=== PATIENT | female | born 1965 | race American Indian/Alaskan Native ===

== ENCOUNTER 2019-04-02 15:10 | Outpatient (CLI) | payer BC, OTHER | END 2019-04-02 15:11 | disposition home or self-care (01) | LOC: LABHHL 15:10 | PROVIDERS: ATTEND Surgery | DX: C50.911 Malignant neoplasm of unspecified site of right female breast (principal); D36.0 Benign neoplasm of lymph nodes | CPT/HCPCS: 88305; 88341; 88342; 88368 ==

== ENCOUNTER 2019-05-04 12:43 | Day surgery (SDC) | payer BC ==
[~2019-05-04 12:43] MED LIST: ANCEF/STERILE WATER 2 GM/20 ML 2 GM/20 ML SYRINGE IV NR; ANCEF/STERILE WATER 2 GM/20 ML IV NR; LACTATED RINGERS 1,000 ML IV SCH; NEURONTIN PO NR; TYLENOL PO NR; TYLENOL PO ONE
[2019-05-04] MEDS ORDERED: NACL BACTERIOSTATIC INFILTRATI ONE (13:14)
[2019-05-04] MEDS ORDERED: VERSED IV ONE (13:55)
--- NOTE | 2019-05-04 14:09 | Anesthesia Day of Surgery ---
Anesthesia Day of Surgery - Day of Surgery Patient Examined: Yes Patient H&P Reviewed: Yes Patient is NPO: Yes
[2019-05-04] MEDS ORDERED: XYLOCAINE 1% 20 mL ONE (14:12)
[2019-05-04] MEDS ORDERED: MARCAINE 0.5% INFILTRATI ONE ×2 (14:12→14:58)
--- NOTE | 2019-05-04 14:12 | Anesthesia Consultation ---
Anesthesia Consult and Med Hx Date of service: 05/04/19 - Airway Anesthetic Teeth Evaluation: Good ROM Head & Neck: Adequate Mental/Hyoid Distance: Adequate Mallampati Class: Class III Intubation Access Assessment: Probably Good - Pre-Operative Health Status ASA Pre-Surgery Classification: ASA2 Proposed Anesthetic Plan: General, MAC - Pulmonary Hx Smoking: Yes (PRESCREEN HIGH RISK) Hx Sleep Apnea: No - Cardiovascular System Hx Hypertension: Yes Hx Heart Attack/AMI: No - Central Nervous System Hx Psychiatric Problems: No - Hematic Hx Anemia: No - Other Systems Hx Alcohol Use: Yes (OCC. WINE OR LIQUOR) Hx Cancer: Yes
[2019-05-04] MEDS ORDERED: DIPRIVAN 10 MG/ML IV ONE ×2 (14:37→15:06)
[2019-05-04] MEDS ORDERED: VERSED ONE (14:38)
[2019-05-04] MEDS ORDERED: SUBLIMAZE ONE (14:40)
[2019-05-04] MEDS ORDERED: HEPARIN 10,000 UNITS/10 ML ONE (14:55)
[2019-05-04] MEDS ORDERED: NACL 0.9% 250ML 250 ML ONE (14:56)
[2019-05-04] MEDS ORDERED: XYLOCAINE 1% 20 mL INFILTRATI ONE (14:58)
[2019-05-04] MEDS ORDERED: NACL P/F VIAL (10 ML) 10 ML ONE (15:02)
--- NOTE | 2019-05-04 15:39 | Short Stay Summary ---
Short Stay Documentation Date of service: 05/04/19 - History H&P: obtained from office - Allergies and Medications Current Medications: Allergies No Known Allergies Allergy (Unverified 05/03/19 09:42) Home Medications Medication Instructions Recorded Confirmed Last Taken Type Ibuprofen [Motrin 800 MG tab] 800 mg PO PRN 05/03/19 05/03/19 04/28/19 History Valsartan [Diovan] 160 mg PO DAILY 05/03/19 05/04/19 05/03/19 History Active Medications Acetaminophen (Tylenol) 1,000 mg PO PREOP NR Stop: 05/04/19 16:00 Last Admin: 05/04/19 13:25 Dose: 1,000 mg Documented by: Cefazolin Sodium (Ancef/Sterile Water 2 Gm/20 Ml) 2 gm IV PREOP NR Stop: 05/04/19 16:00 Celecoxib (Celebrex) 200 mg PO PREOP NR Stop: 05/04/19 16:00 Last Admin: 05/04/19 13:25 Dose: 200 mg Documented by: Gabapentin (Neurontin) 300 mg PO PREOP NR Stop: 05/04/19 16:00 Last Admin: 05/04/19 13:25 Dose: 300 mg Documented by: Lactated Ringer's (Lactated Ringers) 1,000 mls @ 75 mls/hr IV DIRECT RANDALL Last Admin: 05/04/19 13:35 Dose: 75 mls/hr Documented by: - Physical exam General appearance: no acute distress Integumentary: no rash, no growths, no abnormal pigmentation HEENT: Atraumatic Lungs: Normal air movement Neurological: Normal speech - Brief post op/procedure progress note Date of procedure: 05/04/19 (dictation:[id number]) Pre-op diagnosis: right breast cancer Post-op diagnosis: same Procedure: Port placement under ultrasound guidance IVF 700cc EBL<10cc Anesthesia: MAC Findings: normal anatomy Surgeon: HANG PATEL Estimated blood loss: minimal Pathology: none Condition: stable - Hospital course Hospital course: uneventful - Disposition Condition at discharge: Stable Disposition: DC-01 TO HOME OR SELFCARE Short Stay Discharge Plan Diet: regular Wound: open to air, keep clean and dry Special Instructions: no heavy lifting Additional Instructions: Post Operative Instructions No driving until cleared by surgeon. May shower tomorrow. Pat dry the wound or wounds. After surgery, start with a light diet. Consider having a liquid diet first. If you do well, you can advance to a regular diet as you feel comfortable. Apply an ice pack to the wound or wounds for 10-20 minutes at a time. Do this at least 4-5 times a day. You can do it more if he would like. Alternate the use of ibuprofen and Tylenol for the first 2 days. I want you to take these on a scheduled basis. Take 600 mg of ibuprofen every 6 hours. Take 500 mg of Tylenol every 6 hours. You should alternate these 2 medicines. In other words, beginning with the ibuprofen. After 3 hours, take the Tylenol. Keep alternating the 2 drugs every 3 hours. Do this on a scheduled basis for the first 2 days. After that, you can take them as needed. It is very important that you use the prescription pain medicine only for very severe pain. Do not take the prescription medicine before you try using the ibuprofen and Tylenol. We will call you in a couple of days to see how youre doing. If you have any questions or concerns, always feel free to call the clinic at any time. WOUND:OPEN TO AIR. DO NOT RUB OR SCRUB INCISION SITE. NO POOLS, LAKES , NO BATH. MAY SHOWER. DO NOT SUBMERGE TO WATER. Follow up with: PRIMARY CARE, [Primary Care Provider] - 7 Days Prescriptions: HYDROcodone/APAP 5-325 [Eclectic 5/325] 1 each PO Q6HR PRN #10 tablet PRN Reason: Pain , Severe (7-10)
[2019-05-04] MEDS ORDERED: NORMODYNE IV ONE (15:55)
--- NOTE | 2019-05-04 16:31 | Fluoroscopy Report ---
FLUOROSCOPY CENTRAL VENOUS DEVICE PLACEMENT HISTORY: Breast cancer, Dqpiwg-m-Vait insertion. FINDINGS: Fluoroscopy was provided by radiology during Embzaq-a-Ndtp insertion. 0.6 minutes of fluoroscopy time was utilized. 2 AP images of the chest are presented demonstrating a left IJ Momwpq-n-Shbh insertion terminating in the right atrium. The lungs are clear. No pneumothorax. Heart and mediastinal structu res are within normal limits. IMPRESSION: Left Dsolyf-i-Qsth placement. No pneumothorax. Signer Name: Sb Genao Jr, MD Signed: 05/04/2019 4:26 PM Workstation Name: [id number]
[2019-05-04 16:56] VITALS: BP 168/88
--- NOTE | 2019-05-04 20:20 | Post Anesthesia Evaluation ---
- Post Anesthesia Evaluation Patient Participated: Yes Airway Patent: Yes Stable Respiratory Function: Yes Nausea/Vomiting: No Temp > 96.8F: Yes Pain Manageable: Yes Adequeate Hydration: Yes Anesthesia Complications: No Block Receding Appropriately: Not Applicable Patient on Ventilator: No
--- NOTE | 2019-05-04 23:04 | Operative Report ---
PREOPERATIVE DIAGNOSIS: Right breast cancer. POSTOPERATIVE DIAGNOSIS: Right breast cancer. PROCEDURE: 1. Placement of tunneled intravascular central venous catheter with subcutaneous port. 2. Ultrasound guidance for vascular access. ATTENDING PHYSICIAN: Eliazar Borjas MD ANESTHESIA: Local MAC. ESTIMATED BLOOD LOSS: Less than 10 mL. FLUIDS: 700 mL. FINDINGS: Normal vascular anatomy. IMPLANTS: Smart Port. DRAINS: None. COMPLICATIONS: None. DISPOSITION: Stable transport to Recovery. INDICATIONS: This is a 53-year-old female who was recently diagnosed with breast cancer. The patient is assessed to be in need for preoperative chemotherapy. Procedure, risks, benefits were explained. Risks included but were not limited to infection, bleeding, pain, injury to surrounding structures, possible need for further procedures in the future. The patient understood and consented. OPERATIVE NOTE: The patient was brought to the operating room and placed on the table in supine position. After adequate sedation was established, the patient was prepped and draped in the usual sterile fashion. Before that the ultrasound examination had been done of the left subclavian and left internal jugular veins. The left subclavian vein was not well visualized. The left internal jugular vein was easily visualized. It was patent throughout. There were no clots noted. No stenosis was noted. It was soft and easily compressible. This appeared to be our best target. Sterile prep and drape was performed. The patient was placed in Trendelenburg position. A roll was placed underneath the shoulders. Time-out was called. We began by anesthetizing the planned access site with 1% lidocaine and 0.5% Marcaine. This was done under ultrasound guidance. I anesthetized the entire area up to the area of the vein. We also took care to avoid the external jugular vein that was both visible external exam and ultrasound. Thereafter, a small incision was made under ultrasound guidance, I advanced the introducer needle into the vein. I accessed it on the first attempt. Guidewire easily passed. We then secured this to the drape. We checked the position with fluoroscopy, it was in good position. I then turned my attention to the subcutaneous pocket for the port. Additional local was injected. Skin was incised. Subcutaneous pocket was created both with electrocautery and blunt dissection. It appears the patient prior was taking a fair amount of ibuprofen as she had a lot of oozing when I spoke with at the end of the case he confirmed that she had been taking a fair amount. Hemostasis was achieved with electrocautery. Wound was packed. I then anesthetized the planned tunneling site and then passed the tunneler up to the neck. This was done with minimal difficulty. Catheter was pulled out. We clamped the distal aspect of the catheter and then we proceeded to pass the dilator and sheath over the guidewire periodically checking to make sure the guidewire was easily mobile and once the dilator sheath completely in, I removed the dilator and the wire. We had good blood flow through the sheath. Catheter was passed to about 22 cm. This appeared to be a very good length for her. I then modified the distal aspect of it, taking care to clamp the catheter, so that area did not rushing. We secured the port. Port was in the pocket and then we placed securing a blue collar over the point where the catheter attached to the port. We tested the port. It aspirated and flushed very easily. We then locked it. After we had removed the sheath completely and then put the catheter in, we looked at the path with fluoroscopy. There were no twists or sharp bends. Everything looked really good. The tip of it appeared to be approximately 2-1/2 vertebral bodies below the david, which I thought was reasonable. There was no ectopy on exam: The patient was placed in reverse Trendelenburg position. Locking solution was administered. We made sure we had good hemostasis. I closed the deep tissue at the port site with interrupted 3-0 Vicryl sutures. Skin was closed with a running 4-0 Monocryl subcuticular stitch. Skin was cleaned and dried. Dermabond was placed on both sides. The patient tolerated procedure well. There were no complications. All counts were correct. I spoke with at the end of the case because of the oozing and recommended frequent use of the ice packs and mild pressure. Official read of the post-procedure chest x-ray shows no evidence of any complication. No evidence of pneumothorax. The tip of the catheter terminated in the right atrium. JOB# [id number] ZEYNEP/GRABIEL
== END 2019-05-04 12:44 | disposition home or self-care (01) ==
LOC: OR 12:43
PROVIDERS: ATTEND Surgery
DX: C50.911 Malignant neoplasm of unspecified site of right female breast (principal); I10 Essential (primary) hypertension; Z72.89 Other problems related to lifestyle; Z85.89 Personal history of malignant neoplasm of other organs and systems; Z87.891 Personal history of nicotine dependence; Z79.899 Other long term (current) drug therapy; Z98.890 Other specified postprocedural states
CPT/HCPCS: 36561; 77001; 81025; C1788; J0690; J1644; J2250; J2704; J3010; J7050; J7120

== ENCOUNTER 2019-05-22 08:57 | Outpatient (CLI) | payer BC ==
--- NOTE | 2019-05-24 11:06 | Magnetic Resonance Report ---
BILATERAL BREAST MR WITHOUT AND WITH GADOLINIUM INDICATION: Newly diagnosed right breast cancer. COMPARISONS: 04/02/2019 [facility] TECHNIQUE: Axial 1.0 mm T1 without, axial high-resolution 2.0 mm T2 and axial 1.0 mm dynamic vibrant high-resolution postcontrast T1 fat saturation sequences on a 1.5 Aydee magnet. The examination was p erformed with an 8-channel dedicated [place] breast coil. Post-processing with CAD and subtraction was performed on an Spot[employer] workstation. 19.0 cc of MultiHance was injected without incident for the c ontrast portion of the exam. Consent was obtained prior to the administration of the contrast. FINDINGS: RIGHT BREAST: Mild background parenchymal enhancement. An oval irregular enhancing mass in the upper inner quadrant measures 4.5 x 3.5 x 2.3 cm. There is at least 3 cm of mass extending to the skin. The skin is abnormally thickened and demonstrates abnormal enhancement in the area of the mass. The ashwini phery of the mass demonstrates heterogeneous enhancement with 100% type I persistent waveform and 108 % peak enhancement. No other mass or suspicious enhancement. A suspicious 2 cm right axillary lymph n ode contains a biopsy clip and has a cortical thickness of 8 mm. No other suspicious lymph nodes. LEFT BREAST: Minimal background parenchymal enhancement. No mass or suspicious enhancement. No suspic ious lymph nodes. An Fjdacs-u-Ipoq is identified in the upper inner quadrant. IMPRESSION: 1. A 4.5 cm known right breast cancer with skin involvement and central necrosis. 2. No other lesion of either breast. 3. A single suspicious right axillary lymph node which has been biopsied. No other suspicious lymph n odes. BI-RADS Category 6--Known Cancer Signer Name: Konrad Montenegro MD Signed: 05/24/2019 11:02 AM Workstation Name: [id number]
== END 2019-05-22 08:58 | disposition home or self-care (01) ==
LOC: SPVIMAG 08:57
PROVIDERS: ATTEND Surgery
DX: C50.911 Malignant neoplasm of unspecified site of right female breast (principal); I10 Essential (primary) hypertension
CPT/HCPCS: A9577; C8908; 77049

== ENCOUNTER 2019-11-28 06:13 | Observation (INO) | payer BC, OTHER ==
[~2019-11-28 06:13] MED LIST changes: -ANCEF/STERILE WATER 2 GM/20 ML 2 GM/20 ML SYRINGE IV NR; -ANCEF/STERILE WATER 2 GM/20 ML IV NR; +CELECOXIB 200 MG CAP PO NR; +GABAPENTIN 300 MG CAP PO NR; -LACTATED RINGERS 1,000 ML IV SCH; +MAGNESIUM OXIDE 400 MG TAB PO SCH; +MIDAZOLAM 2 MG/2 ML INJ IV NR; -NEURONTIN PO NR; +SCOPOLAMINE TRANSDERMAL PATCH 72 HR TD NR; -TYLENOL PO NR; -TYLENOL PO ONE; +fentaNYL 100 MCG/2 ML INJ IV PRN
[2019-11-28] MEDS ORDERED: LACTATED RINGERS 1,000 ML IV SCH ×2 (07:00→14:00)
[2019-11-28] MEDS ORDERED: ROCURONIUM 50 MG/5 ML INJ IV ONE ×2 (07:10→10:09)
[2019-11-28] MEDS ORDERED: fentaNYL 100 MCG/2 ML INJ ONE (07:10)
[2019-11-28] MEDS ORDERED: METHYLENE BLUE 50 MG/10 ML AMP ONE (07:10)
[2019-11-28] MEDS ORDERED: propofoL 200 MG/20 ML VIAL IV ONE (07:10)
[2019-11-28] MEDS ORDERED: SODIUM CHLORIDE P/F VIAL 10 ML 10 ML ONE (07:10)
[2019-11-28] MEDS ORDERED: MIDAZOLAM 2 MG/2 ML INJ ONE (07:10)
[2019-11-28] MEDS ORDERED: LIDOCAINE MPF (2%) 20 MG/1 ML VIAL 5 ML ONE (07:10)
[2019-11-28] MEDS ORDERED: ACETAMINOPHEN 500 MG TAB PO NR (07:17)
[2019-11-28] MEDS ORDERED: ceFAZolin/STERILE WATER 2 GM/20 ML SYRINGE IV NR (07:20)
--- NOTE | 2019-11-28 07:22 | Anesthesia Day of Surgery ---
Anesthesia Day of Surgery - Day of Surgery Patient Examined: Yes Patient H&P Reviewed: Yes Patient is NPO: Yes
--- NOTE | 2019-11-28 07:23 | Anesthesia Consultation ---
Anesthesia Consult and Med Hx Date of service: 11/28/19 - Airway Anesthetic Teeth Evaluation: Chipped ROM Head & Neck: Adequate Mental/Hyoid Distance: Adequate Mallampati Class: Class II Intubation Access Assessment: Good - Pre-Operative Health Status ASA Pre-Surgery Classification: ASA2 Proposed Anesthetic Plan: General - Pulmonary Hx Smoking: Yes (SINCE AGE 20 SOCIALLY; QUIT 2005) Hx Sleep Apnea: No - Cardiovascular System Hx Hypertension: Yes (2017. States she can climb two flights of stairs) - Central Nervous System Hx Psychiatric Problems: No - Hematic Hx Anemia: No - Other Systems Hx Alcohol Use: Yes (OCCA. WINE) Hx Substance Use: Yes (MARIJUANA OCCA.) Hx Cancer: Yes
[2019-11-28] MEDS ORDERED: BUPIVACAINE-EPINEPHRINE/PF 0.5%-1:200,000 (30 ML) VIAL INFILTRATI ONE (07:25)
[2019-11-28] MEDS ORDERED: MIDAZOLAM 2 MG/2 ML INJ IV NR (07:40)
[2019-11-28] MEDS ORDERED: SODIUM CHLORIDE 0.9% P/F 10 ML VIAL INFILTRATI ONE (09:16)
[2019-11-28] MEDS ORDERED: METHYLENE BLUE 50 MG/10 ML AMP IV ONE (09:16)
[2019-11-28] MEDS ORDERED: ONDANSETRON 4 MG/2 ML INJ ONE (09:19)
[2019-11-28] MEDS ORDERED: dexAMETHasone 20 MG/5 ML VIAL ONE (09:19)
[2019-11-28] MEDS ORDERED: METOCLOPRAMIDE 10 MG/2 ML INJ ONE (09:19)
[2019-11-28] MEDS ORDERED: ceFAZolin 1 GM VIAL ONE ×2 (09:23→14:25)
[2019-11-28] MEDS ORDERED: SODIUM CHLORIDE P/F VIAL 10 ML 20 ML ONE (09:24)
[2019-11-28] MEDS ORDERED: GENTAMICIN 40 MG/ML VIAL 2 ML ONE (09:24)
[2019-11-28] MEDS ORDERED: BACITRACIN 50,000 UNIT VIAL ONE (09:24)
[2019-11-28] MEDS ORDERED: WATER FOR IRRIG STERILE 1,500 ML BOTTLE IR ONE (09:30)
[2019-11-28] MEDS ORDERED: SODIUM CHLORIDE 0.9% IRR 1,500 ML BOTTLE IR ONE ×2 (10:31→14:30)
[2019-11-28] MEDS ORDERED: ceFAZolin 1 GM VIAL IV ONE ×2 (10:33→14:30)
[2019-11-28] MEDS ORDERED: ceFAZolin 1 GM VIAL IR ONE ×2 (10:38→14:30)
[2019-11-28] MEDS ORDERED: BACITRACIN 50,000 UNIT VIAL IR ONE ×2 (10:39→14:30)
[2019-11-28] MEDS ORDERED: GENTAMICIN 40 MG/ML VIAL 2 ML IV ONE ×2 (10:40→14:30)
[2019-11-28] MEDS ORDERED: HYDROmorphone 1 MG/1 ML INJ ONE (11:15)
[2019-11-28] MEDS ORDERED: LACTATED RINGERS 1,000 ML ONE ×2 (11:26→16:45)
[2019-11-28] MEDS ORDERED: PHENYLEPHRINE/NS 1,000 MCG/10 ML SYRINGE (OR USE) IV ONE (11:31)
--- NOTE | 2019-11-28 13:12 | Operative Report ---
Operative Report Operative Report: Operative Report: Date of Service: October 24, 2019 Preoperative diagnosis: Right breast cancer of the upper inner quadrant Postoperative diagnosis: Same Procedure: Right total mastectomy with sentinel lymph node biopsy and left total mastectomy Surgeon: Raven Stephens M.D. Registered Nurse Maternal Child: Dr. Grimaldo Anesthesia: Gen. Findings: Right breast clip present within right total mastectomy; x3 sentinel lymph nodes identified and negative for malignancy on frozen section of patholo gy with first SLN with biopsy site changes Complications: None Drains: Per Plastic Surgery Estimated blood loss: 100-150 cc Disposition: Plastic surgery proceeded with bilateral tissue expanders Indications for operative procedure: This is a 54-year-old lady with stage II- III right breast cancer of the upper inner quadrant, IDCA grade 3 cT3N0/1M0 ER 10% positive. She completed neoadjuvant chemotherapy with a good response clinically and recommendations were to proceed with a right total mastectomy and patient wanted to proceed with a bilateral mastectomy with immediate bilateral tissue coupon collection clerk placement by plastic surgery. She understood the possibility of adjuvant radiation therapy following surgery. She wished to proceed with the above procedure. Procedure in detail: The patient was taken to the operating room and was placed supine. Gen. anesthesia was administered. The right nipple was injected with radioisotope and 1 cc of methylene blue. Bilateral chest and axillas were pr epped and draped in the normal sterile operative fashion. Timeout was performed. Vertical mastectomy incision markings were made given location of known right breast cancer at the 2:00 position 5-6 cm from the nipple. Attention was taken toward the left breast first. First began raising of the superior flap to the level of the clavicle superiorly and posteriorly to the pectoralis muscle; port was noted and unharmed. Followed by raising of the medial flap to the level of the sternum and posteriorly to the pectoralis muscle. Followed by raising of the lateral flap to the level of the latissimus dorsi muscle and taken down posteriorly. Followed by raising of the inferior flap to the level of the inframammary fold taken posterior to the pectoralis muscle. The mastectomy/breast was removed from the pectoralis muscle without incident. The specimen was appropriately marked and sent to pathology. Hemostasis was obtained. Attention was taken towards the right breast. A gamma probe was inserted into the axilla to identify the sentinel lymph node location with uptake noted. A skin incision was made with a 10 blade knife and dissection taken down to the subcutaneous tissues. First began raising of the superior flap to the level of the clavicle superiorly and posteriorly to the pectoralis muscle. Followed by raising of the medial flap to the level of the sternum and posteriorly to the p ectoralis muscle. Followed by raising of the lateral flap to the level of the latissimus dorsi muscle and taken down posteriorly. The gamma probe was inserted into the axilla, the axillary fascia was opened and 3 SLNS were identified that were dissected free and sent to pathology. All SLNs sent to pathology with findings negative for malignancy on frozen section and first SLN with biopsy site changes. Then proceeded with raising of the inferior flap to the level of the inframammary fold taken posterior to the pectoralis muscle. The mastectomy/breast was removed from the pectoralis muscle without incident. The specimen was appropriately marked and sent to radiology with findings of breast clip present and sent to pathology. Hemostasis was obtained. The chest wall cavity was irrigated. She tolerated surgery very well and plastic surgery then proceeded with immediate bilateral tissue coupon collection clerk placement.
[2019-11-28] MEDS ORDERED: diphenhydrAMINE 25 MG CAP PO PRN (13:13)
[2019-11-28] MEDS ORDERED: METOCLOPRAMIDE 10 MG TAB PO PRN (13:13)
[2019-11-28] MEDS ORDERED: ONDANSETRON 4 MG/2 ML INJ IV PRN (13:13)
[2019-11-28] MEDS ORDERED: ACETAMINOPHEN 325 MG TAB PO PRN (13:13)
[2019-11-28] MEDS ORDERED: MORPHINE 2 MG/1 ML INJ IV PRN (13:15)
--- NOTE | 2019-11-28 14:02 | Mammography Report ---
SPECIMEN RADIOGRAPH RIGHT BREAST INDICATION: POST EX BX. Breast cancer. COMPARISON: 10/04/2019 mammogram FINDINGS: The known cancer with a biopsy clip is identified within the whole breast specimen. IMPRESSION: 1. Excision of the known cancer.. Signer Name: Konrad Montenegro MD Signed: 11/28/2019 1:57 PM Workstation Name: [id number]
[2019-11-28] MEDS ORDERED: SODIUM CHLORIDE 0.9% 100 ML ONE (14:22)
[2019-11-28] MEDS ORDERED: GLYCOPYRROLATE 0.4 MG/2 ML INJ ONE (15:55)
[2019-11-28] MEDS ORDERED: NEOSTIGMINE 10MG/10 ML INJ MDV ONE (15:55)
[2019-11-28] MEDS ORDERED: fentaNYL 100 MCG/2 ML INJ IV PRN (16:41)
--- NOTE | 2019-11-28 16:59 | Operative Report ---
Operative Report Operative Report: Plastic Surgery Operative Note Surgeon: Halie Cheng MD Burlap Roll Coverer: CHAR Morrell Preoperative Diagnosis: Acquired absence of the bilateral breasts; Malignant neoplasm of the right breast Postoperative Diagnosis: Same Procedure: Bilateral breast reconstruction with tissue semi driver placement and F lexHD acellular dermal matrix. Anesthesia: General EBL: 50cc Indications: This patient is a 54 year old AAF who is scheduled for a right mastectomy and desires a bilateral procedure so as to reduce risk for future malignancy. She is opting for reconstruction and after review of her options we determined that a tissue semi driver placement with FlexHD dermal scaffold was her best option. We discussed her options including autologous tissue transfer and she was interested in the least complex reconstructive route possible. So we planned for tissue semi driver placement with the use of acellular dermal matrix. The benefits as well as the risks of the procedure were discussed with the patient, including but not limited to infection, bleeding, hematoma, seroma, wound dehiscence, implant rupture, need for further surgery including planned stages and additional reconstruction. The patient understands and accepts these risks and desires to proceed with surgery. Procedure: After review of pertinent history and physical exam findings the patient was brought into the operating room and placed supine on the OR table. After induction of adequate general anesthesia the entire chest was prepped and draped in the usual sterile surgical fashion. To begin, Dr. Raven Stephens performed the mastectomies and this procedure is dictated under a separate operative note. When this was completed, the breast reconstruction was started on the right breast. Using electrocautery we dissected a submuscular pocket behind pectoralis muscle to accommodate the tissue semi driver. The pocket was th oroughly irrigated with triple antibiotic solution and we began creating the inframammary border using Flex HD perforated contoured, a total size of 9x15cm. The inferior aspect of the Flex HD was secured to the chest fascia using 2-0 PDS suture. This was followed by placement of the tissue semi driver, [place] [id number] 600cc into the submuscular pocket. Following this inferior border of the pectoralis fascia was secured to the superior border of the FlexHD also using 2- 0 PDS suture. The same exact procedure was repeated on the left side (FlexHD and [place] implants). 19 Iranian SEAMUS drains were placed bilaterally and secured using 2-0 Nylon sutures. We then began a 3-layered closure using 3-0 Monoderm Quill [id number] suture. This was followed by Dermabond glue and then Telfa with tegaderm followed by bra binder. Patient was then awakened from general anesthesia and transferred to the recovery room instable condition.
--- NOTE | 2019-11-28 17:48 | Post Anesthesia Evaluation ---
- Post Anesthesia Evaluation Patient Participated: Yes Airway Patent: Yes Stable Respiratory Function: Yes Nausea/Vomiting: No Temp > 96.8F: Yes Pain Manageable: Yes Adequeate Hydration: Yes Anesthesia Complications: No
[2019-11-28] MEDS: HYDROmorphone 2 MG TAB PO PRN (18:24)
[2019-11-28] MEDS: oxyCODONE /ACETAMINOPHEN 5-325MG TAB PO PRN (20:17)
[2019-11-28] MEDS: DOCUSATE SODIUM 100 MG CAP PO SCH (22:56)
[2019-11-29] MEDS: HYDROmorphone 2 MG TAB PO PRN ×2 (01:10→09:25)
[2019-11-29] MEDS: oxyCODONE /ACETAMINOPHEN 5-325MG TAB PO PRN ×2 (06:05→13:20)
--- NOTE | 2019-11-29 07:42 | Progress Note ---
Subjective Date of service: 11/29/19 Interval history: Plastic surgery progress note This patient is postop day #1 status post bilateral mastectomy with bilateral breast reconstruction using tissue expanders with Flex HD. She did well overnight, she reports that her pain is well controlled, is having more soreness on the right side but overall very comfortable. She is eager to get home. Denies nausea, vomiting, chest pain. She has oxygen via nasal cannula on right now but states that she thinks she can breathe comfortably on room air alone. Exam: Breast dressings clean dry and intact. Binder in place. SEAMUS drains in place, functional, with serosanguineous output. Appropriately tender. No evidence of hematoma, seroma, or infection. Assessment/plan: 1. Patient was encouraged to discontinue use of nasal cannula and see how she feels. She was advised to keep her nurse abreast of any changes that she experiences regarding shortness of breath. 2. Patient will be advanced to regular breakfast this morning. 3. The plan is for discharge this afternoon. Patient has her prescriptions already and she also has her follow-up appointment scheduled for next week. SEAMUS drain care teaching prior to discharge. Objective - Constitutional Vitals: Vital Signs - 12hr 11/28/19 11/28/19 11/28/19 20:00 20:17 20:45 Temperature 98.2 F Pulse Rate 80 Respiratory 18 20 Rate Respiratory 18 Rate [Bilateral Chest] Blood Pressure 133/88 O2 Sat by Pulse 96 Oximetry 11/28/19 11/28/19 11/28/19 21:17 22:56 23:26 Temperature Pulse Rate Respiratory 18 18 18 Rate Respiratory Rate [Bilateral Chest] Blood Pressure O2 Sat by Pulse Oximetry 11/29/19 11/29/19 11/29/19 01:10 02:10 04:56 Temperature 98.4 F Pulse Rate 68 Respiratory 20 18 20 Rate Respiratory Rate [Bilateral Chest] Blood Pressure 118/72 O2 Sat by Pulse Oximetry 11/29/19 11/29/19 06:05 07:05 Temperature Pulse Rate Respiratory 18 18 Rate Respiratory Rate [Bilateral Chest] Blood Pressure O2 Sat by Pulse Oximetry Medications & Allergies - Medications Allergies/Adverse Reactions: Allergies No Known Allergies Allergy (Verified 11/27/19 09:37) Home Medications: Home Medications Medication Instructions Recorded Confirmed Last Taken Type Valsartan [Diovan] 160 mg PO DAILY 05/03/19 11/28/19 11/28/19 06:58 History Active Medications: Generic Name Dose Route Start Last Admin Trade Name Freq PRN Reason Stop Dose Admin Acetaminophen 650 mg 11/28/19 13:13 Tylenol PO Q6H PRN Pain MILD(1-3)/Fever >100.5/HOLLY Diphenhydramine HCl 25 mg 11/28/19 13:13 Benadryl PO Q8H PRN Itching Docusate Sodium 100 mg 11/28/19 22:00 11/28/19 22:56 Colace PO 100 mg BID RANDALL Administration Hydromorphone HCl 2 mg 11/28/19 13:13 11/29/19 01:10 Dilaudid PO 2 mg Q6H PRN Administration Pain , Severe (7-10) Lactated Ringer's 1,000 mls @ 100 mls/hr 11/28/19 07:00 11/28/19 07:15 Lactated Ringers IV 100 mls/hr DIRECT RANDALL Administration Lactated Ringer's 1,000 mls @ 125 mls/hr 11/28/19 14:00 Lactated Ringers IV DIRECT RANDALL Metoclopramide HCl 10 mg 11/28/19 13:13 Reglan PO Q6H PRN Nausea And Vomiting Morphine Sulfate 2 mg 11/28/19 13:15 11/28/19 22:56 Morphine IV 2 mg Q4H PRN Administration Pain, Moderate (4-6) Ondansetron HCl 4 mg 11/28/19 13:13 Zofran IV Q8H PRN N/V unrelieved by Reglan Oxycodone/Acetaminophen 1 tab 11/28/19 13:13 11/29/19 06:05 Percocet 5/325 PO 1 tab Q6H PRN Administration Pain, Moderate (4-6) Sodium Chloride 10 ml 11/28/19 13:13 Sodium Chloride Flush Syringe 10 Ml IV PRN PRN LINE FLUSH
[2019-11-29] MEDS: DOCUSATE SODIUM 100 MG CAP PO SCH (09:25)
[2019-11-29 11:05] VITALS: BP 108/70
== END 2019-11-29 15:10 | disposition home or self-care (01) ==
LOC: OR 06:13 → OB 13:16
PROVIDERS: ADMIT Plastic Surgery; ATTEND Surgery
DX: C50.911 Malignant neoplasm of unspecified site of right female breast (principal); C50.912 Malignant neoplasm of unspecified site of left female breast
CPT/HCPCS: 19303; 19357; 38525; 38792; 64450; 76098; 78800; 88307; 88309; 88331; 88333; 88342; 96374; 96375; A9541; C1789; G0378; J0690; J1100; J1170; J1580; J2250; J2270; J2370; J2405; J2704; J2710; J2765; J3010; J7120; Q4128; Q9968; 88341

== ENCOUNTER 2020-03-13 10:51 | Day surgery (SDC) | payer BC ==
[~2020-03-13 10:51] MED LIST changes: +LACTATED RINGERS 1,000 ML IV SCH; -SCOPOLAMINE TRANSDERMAL PATCH 72 HR TD NR; +ceFAZolin/Water 2 GM/20 ML 2 GM/20 ML SYRINGE IV NR; -fentaNYL 100 MCG/2 ML INJ IV PRN
[2020-03-13] MEDS ORDERED: HYDROmorphone 1 MG/1 ML INJ IV PRN (12:02)
--- NOTE | 2020-03-13 12:04 | Anesthesia Consultation ---
Anesthesia Consult and Med Hx Date of service: 03/13/20 - Airway Anesthetic Teeth Evaluation: Good ROM Head & Neck: Adequate Mental/Hyoid Distance: Adequate Mallampati Class: Class II Intubation Access Assessment: Probably Good - Pulmonary Exam CTA: Yes - Cardiac Exam Cardiac Exam: RRR - Pre-Operative Health Status ASA Pre-Surgery Classification: ASA2 Proposed Anesthetic Plan: General - Pulmonary Hx Smoking: Yes (quit 2005) Hx Respiratory Symptoms: No - Cardiovascular System Hx Hypertension: Yes (well controlled) Hx Heart Attack/AMI: No - Central Nervous System CVA: No - Gastrointestinal Hx Gastroesophageal Reflux Disease: No - Endocrine Hx Renal Disease: No Hx Liver Disease: No Hx Insulin Dependent Diabetes: No Hx Non-Insulin Dependent Diabetes: No Hx Thyroid Disease: No - Other Systems Hx Substance Use: Yes (occasional THC) Hx Cancer: Yes (hx breast ca; not on chemotherapy) - Additional Comments Anesthesia Medical History Comments: No hx anesthetic complications.
--- NOTE | 2020-03-13 12:04 | Anesthesia Day of Surgery ---
Anesthesia Day of Surgery - Day of Surgery Patient Examined: Yes Patient H&P Reviewed: Yes Patient is NPO: Yes
[2020-03-13] MEDS ORDERED: METHYLENE BLUE 50 MG/10 ML AMP ONE (12:12)
[2020-03-13] MEDS ORDERED: SODIUM CHLORIDE 0.9% 1000 ML 1,000 ML ONE (12:13)
[2020-03-13] MEDS ORDERED: LIDOCAINE MPF (2%) 20 MG/1 ML VIAL 5 ML ONE (13:54)
[2020-03-13] MEDS ORDERED: fentaNYL 100 MCG/2 ML INJ ONE (13:54)
[2020-03-13] MEDS ORDERED: propofoL 200 MG/20 ML VIAL IV ONE (13:55)
[2020-03-13] MEDS ORDERED: BACITRACIN 50,000 UNIT VIAL ONE (14:18)
[2020-03-13] MEDS ORDERED: KETOROLAC 30 MG/1 ML INJ ONE (14:22)
[2020-03-13] MEDS ORDERED: ONDANSETRON 4 MG/2 ML INJ ONE (14:22)
[2020-03-13] MEDS ORDERED: dexAMETHasone 20 MG/5 ML VIAL ONE (14:22)
[2020-03-13] MEDS ORDERED: LIDOCAINE 1%/EPINEPHRINE 1:100,000 VIAL (20 ML) INFILTRATI ONE ×2 (14:37→16:13)
[2020-03-13] MEDS ORDERED: SODIUM CHLORIDE 0.9% IRR 1,500 ML BOTTLE IR ONE (14:55)
[2020-03-13] MEDS ORDERED: BACITRACIN 50,000 UNIT VIAL IR ONE (14:55)
[2020-03-13] MEDS ORDERED: HYDROmorphone 1 MG/1 ML INJ ONE (15:31)
--- NOTE | 2020-03-13 16:14 | Operative Report ---
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 aHlie Cheng Revolving Inventory Clerk: None Anesthesia: General EBL: Minimal Indications: This patient is a 54 year old AAF who previously underwent bilateral breast reconstruction with tissue expanders and FlexHD after mastectomy. She has successfully completed in-office expansion, so the decision was made to return to the OR to do an exchange of her tissue asphalt patcher for a permanent prosthesis. The benefits as well as the risks of the procedure were e xplained to the patient in great detail including but not limited to infection, bleeding, seroma, hematoma, implant rupture, capsular contracture, implant malposition and the need for further reconstructive surgery. She was given the opportunity to ask questions. Informed consent was obtained. Procedure: After review of pertinent history and physical exam findings the patient was brought into the operating room and placed supine on the OR table. After induction of adequate general endotracheal anesthesia the patient's chest was prepped and draped in the usual sterile surgical fashion. To begin, we performed the tissue asphalt patcher removal on the right breast. A 650cc Joffre tissue asphalt patcher, intact, was removed from the right breast pocket. Extensive capsulotomy was performed in the well-formed capsule to reshape the implant pocket by lowering the IMF to match the contralateral side better. Once hemostasis was achieved, the pocket was irrigated thoroughly with triple antibiotic solution. Using a INplant funnel, an 650 cc Joffre Memory Shape (SN [id number]) implant was introduced into the pocket without difficulty. We then began our 3-layered closure using 2-0 and 3-0 Monoderm followed by Dermabond. Turning our attention to the left breast, the exact same procedure was repeated and a Joffre Memory Shape silicone implant 650cc (SN [id number]) was placed, followed by a 3-layered closure. Once all incisions were closed, they were sealed with Dermabond this was followed by placement of a bra binder. The patient was then awakened from general anesthesia and transferred to PACU in stable condition. There were no complications. All sponge needle and instrument counts were correct at the end of the case.
[2020-03-13 17:12] VITALS: BP 147/90
== END 2020-03-14 13:00 | disposition home or self-care (01) ==
LOC: OR 10:51
PROVIDERS: ATTEND Plastic Surgery
DX: Z41.1 Encounter for cosmetic surgery (principal); I10 Essential (primary) hypertension; Z85.3 Personal history of malignant neoplasm of breast; Z90.13 Acquired absence of bilateral breasts and nipples; Z79.899 Other long term (current) drug therapy; Z87.891 Personal history of nicotine dependence; Z72.89 Other problems related to lifestyle; Z98.890 Other specified postprocedural states
CPT/HCPCS: 11970; 88300; 88302; C1789; J0690; J1100; J1170; J1885; J2250; J2405; J2704; J3010; J7030; J7120; Q9968; 88305

== ENCOUNTER 2020-03-14 11:44 | Day surgery (SDC) | payer BC ==
[2020-03-14] MEDS ORDERED: LACTATED RINGERS 1,000 ML ONE (12:07)
[2020-03-14] MEDS ORDERED: HYDROmorphone 1 MG/1 ML INJ ONE (12:16)
[2020-03-14] MEDS ORDERED: propofoL 200 MG/20 ML VIAL IV ONE ×2 (12:16→12:52)
[2020-03-14] MEDS ORDERED: LIDOCAINE MPF (2%) 20 MG/1 ML VIAL 5 ML ONE (12:17)
[2020-03-14] MEDS ORDERED: MIDAZOLAM 2 MG/2 ML INJ ONE (12:21)
[2020-03-14] MEDS ORDERED: SODIUM CHLORIDE P/F VIAL 10 ML 10 ML ONE (12:25)
[2020-03-14] MEDS ORDERED: BACITRACIN 50,000 UNIT VIAL ONE (12:25)
[2020-03-14] MEDS ORDERED: ceFAZolin 1 GM VIAL ONE (13:00)
[2020-03-14] MEDS ORDERED: GENTAMICIN 40 MG/ML VIAL 2 ML ONE (13:00)
[2020-03-14] MEDS ORDERED: HYDROmorphone 1 MG/1 ML INJ IV PRN (13:06)
--- NOTE | 2020-03-14 13:06 | Anesthesia Day of Surgery ---
Anesthesia Day of Surgery - Day of Surgery Patient Examined: Yes Patient H&P Reviewed: Yes Patient is NPO: Yes
--- NOTE | 2020-03-14 13:06 | Anesthesia Consultation ---
Anesthesia Consult and Med Hx Date of service: 03/14/20 - Airway Anesthetic Teeth Evaluation: Good ROM Head & Neck: Adequate Mental/Hyoid Distance: Adequate Mallampati Class: Class II Intubation Access Assessment: Good - Pulmonary Exam CTA: Yes - Cardiac Exam Cardiac Exam: RRR - Pre-Operative Health Status ASA Pre-Surgery Classification: ASA2, Emergency Proposed Anesthetic Plan: General - Pulmonary Hx Smoking: Yes (quit 2005) Hx Respiratory Symptoms: No - Cardiovascular System Hx Hypertension: Yes (well controlled) Hx Heart Attack/AMI: No - Central Nervous System CVA: No - Gastrointestinal Hx Gastroesophageal Reflux Disease: No - Endocrine Hx Renal Disease: No Hx Liver Disease: No Hx Insulin Dependent Diabetes: No Hx Non-Insulin Dependent Diabetes: No Hx Thyroid Disease: No - Other Systems Hx Substance Use: Yes (occasional THC) Hx Cancer: Yes (hx breast ca; not on chemotherapy) - Additional Comments Anesthesia Medical History Comments: POD 1 s/p breast implant exchange now w/ expanding hematoma scheduled for urgent evacuation.
[2020-03-14] MEDS ORDERED: LACTATED RINGERS 1,000 ML IV SCH (13:07)
[2020-03-14] MEDS ORDERED: NEOMY 3.5 MG/BACIT 400 UNITS/POLY B 5000 UNITS OINT 15 GM TP ONE (13:41)
[2020-03-14] MEDS ORDERED: SODIUM CHLORIDE 0.9% IRRIG SOLN 2000 ML IR ONE (13:41)
[2020-03-14] MEDS ORDERED: ONDANSETRON 4 MG/2 ML INJ ONE (14:36)
--- NOTE | 2020-03-14 14:57 | Operative Report ---
Operative Report Operative Report: Plastic Surgery Operative Note Preoperative Diagnosis: Left breast hematoma s/p bilateral breast tissue expan sebastian/implant exchange Postoperative Diagnosis: Same Procedure: Evacuation of left breast hematoma, washout and closure Surgeon: Dr. Halie Cheng Anesthesia: Self Sealing Fuel Tank Builder: None Specimen: none EBL: 600ml Indications: This patient is a 54 year old female who was underwent a bilateral breast tissue computer programmer chief/implant exchange yesterdsay. She went home and noticed that her incision was starting to leak bloody drainage. And with time the pain increased her left breast became more and more swollen until this morning when the pain became unbearable and she was directed to meet me in the office for urgent evaluation. Upon evaluation the left breast was noted to be significantly larger than the right, tender, and with soft tissue edema emerging in the surrounding tissues. The decision was made to take her to the OR emergently for expanding hematoma to perform evacuation of hematoma and washout, determine the source of bleeding and close. Procedure: After review pertinent history and physical exam findings patient was brought into the operating room and placed supine on the OR table. After induction of adequate general anesthesia the right chest was prepped and draped in the usual sterile surgical fashion. To begin, the Dermabond of the left breast incision was removed and the incision was reopened using a Metzenbaum scissors to cut the existing Monoderm Quill and Monocryl sutures and an access to the subpectoral pocket. Once inside, 600 mL of hematoma was evacuated with suction and the pocket, which was noted to have scattered areas of bleeding in the areas of capsulotomy and also at the caudal end of the subpectoral pocket. The amount of blood was consistent with an aterial bleed which, after it was thoroughly washed a source could not be found. So presumably the pressure from within served to tamponade the bleeding. All areas where any bleeding was noted were cauterized thoroughly and then the entire pocket was dusted with Ulysses for chemical hemostasis. The wound was then closed in 3 layers using 2-0 Monocryl and 3-0 Monoderm Quill. All incisions were then sealed with Dermabond. The patient was then awakened from general anesthesia and transferred to recovery in stable condition. She tolerated the procedure well. There were no complications. All sponge, needle and instrument counts were correct at the end of the case.
[2020-03-14] MEDS ORDERED: HYDROcodone/ACETAMINOPHEN 7.5-325MG TAB PO PRN (15:06)
[2020-03-14] MEDS ORDERED: ONDANSETRON 4 MG/2 ML INJ IV PRN (15:06)
[2020-03-14 15:47] VITALS: BP 134/85
== END 2020-03-14 16:30 | disposition home or self-care (01) ==
LOC: OR 11:44
PROVIDERS: ATTEND Plastic Surgery
DX: N64.89 Other specified disorders of breast (principal); I10 Essential (primary) hypertension; Z85.3 Personal history of malignant neoplasm of breast; Z79.899 Other long term (current) drug therapy; Z87.891 Personal history of nicotine dependence; Z90.11 Acquired absence of right breast and nipple; Z98.890 Other specified postprocedural states
CPT/HCPCS: 21501; A4217; J0690; J1170; J1580; J2250; J2405; J2704; J7120; A6250